=== PATIENT | female | born 1935 | race Caucasian/White ===

== ENCOUNTER → 2019-05-04 | Outpatient (CLI) | payer MEDICARE, OTHER ==
--- NOTE | 2019-05-04 12:44 | RAD ---
EXAM DESCRIPTION: Wrist,Right 3 Views CLINICAL HISTORY: 83 years Female, M25.531 COMPARISON: None. FINDINGS: Three views of the right wrist show a slightly impacted and mildly comminuted distal right radial fracture with intra-articular extension and only minimal displacement. Tiny fracture involving the tip of the ulnar styloid. The carpal bones are anatomically aligned. Advanced degenerative changes of the first CMC joint including [id number] or near [id number] alignment. IMPRESSION: Distal right radial and ulnar styloid fractures as detailed above. Electronically signed by: James Rucker MD 05/04/2019 12:41 PM CDT
== END ==
LOC: RAD 10:50
PROVIDERS: ATTEND Orthopaedic Surgery
DX: S52.501A Unspecified fracture of the lower end of right radius, initial encounter for closed fracture (principal); S52.201A Unspecified fracture of shaft of right ulna, initial encounter for closed fracture

== ENCOUNTER → 2019-05-28 | Outpatient (CLI) | payer MEDICARE, OTHER ==
--- NOTE | 2019-05-28 12:07 | RAD ---
PROVIDED CLINICAL HISTORY/REASON FOR EXAM: S52.501D Findings: Number of images: Three Location: Right wrist Increased sclerosis and callus formation involving the healing distal right radius fracture. No new fracture identified. Stable alignment. Redemonstrated ulnar styloid avulsion fracture. 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 IMPRESSION: Healing distal right radius fracture with stable alignment. Electronically signed by: Carlos Butler MD 05/28/2019 12:04 PM CDT
== END ==
LOC: RAD 09:44
PROVIDERS: ATTEND Orthopaedic Surgery
DX: S52.501D Unspecified fracture of the lower end of right radius, subsequent encounter for closed fracture with routine healing (principal)

== ENCOUNTER → 2019-06-25 | Outpatient (CLI) | payer MEDICARE, OTHER ==
--- NOTE | 2019-06-25 10:45 | RAD ---
EXAM DESCRIPTION: Wrist,Right 3 Views CLINICAL HISTORY: 83 years, Female, S52.501D COMPARISON: 05/28/2019. Technique: Frontal lateral and oblique views of the right wrist was obtained. FINDINGS: Images of the right wrist demonstrate progressive healing of the right distal radius impacted fracture with progressive callus formation with stable osseous alignment. Prior ulnar styloid avulsion. 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 Osteopenia. IMPRESSION: 1. Right distal radius fracture with progressive healing and stable alignment. 2. Osteopenia. Electronically signed by: Marc Middleton DO 06/25/2019 10:44 AM CDT
== END ==
LOC: RAD 10:11
PROVIDERS: ATTEND Orthopaedic Surgery
DX: S52.501D Unspecified fracture of the lower end of right radius, subsequent encounter for closed fracture with routine healing (principal); M85.831 Other specified disorders of bone density and structure, right forearm